=== PATIENT | female | born 1990 | race Caucasian/White ===

== ENCOUNTER 2022-08-11 01:03 | Emergency (ER) | payer OTHER ==
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
[2022-08-11 01:58] LABS: Urine Blood 1+ (Negative); Urine Glucose Negative (Negative); Urine Protein Negative (Negative); Urine Specific Gravity <=1.005 (1.005-1.030)
[2022-08-11 02:20] LABS: Albumin 4.1 g/dL (3.4-5.0); Bilirubin Total 0.3 mg/dL (0.2-1.0); Potassium 3.4 mmol/L (3.5-5.1)
[2022-08-11 02:21] LABS: Urine Bacteria <20 /HPF (<20); Urine Mucus Slight /HPF (None Seen); Urine RBC <5 /HPF (None Seen)
[2022-08-11 02:29] LABS: Absolute Lymphocytes (CBC) 1.3 K/uL (0.7-4.9); Hematocrit 36.2 % (36.0-45.0); Lymphocytes % 12.7 % (15.3-44.8); MCV 84.3 fL (80-100); MPV 7.8 fL (7.6-11.3); RBC Red Blood Cell Count 4.29 M/uL (3.86-4.86)
--- NOTE | 2022-08-11 03:49 | EDPHYS ---
Physician Documentation [facility] Name: Pamela Larsen Age: 32 yrs Sex: Female : 1990 Arrival Date: 08/11/2022 Time: 01:10 Bed 15 Private MD: ED Physician Tonny Johnson HPI: 08/11 01:40 This 32 yrs old Female presents to ER via Unassigned with complaints of Possible Kidney sp3 Stone. 01:40 2-year-old female with no significant past medical history presents with right lower sp3 quadrant abdominal pain radiating around to the right flank. Patient states that it has been occurring off and on for the past 2 days and today was associated with some urinary frequency and burning as well. After an intense pain., It is now subsided. She had an appointment with telemetry doc services who referred her to the emergency department for imaging. No prior history of kidney stone or pyelonephritis. Patient states that she is not . Review of systems negative for fever, headache, chest pain, shortness of breath, upper back pain, upper abdominal pain, rash, diarrhea, vomiting, any other symptoms at this time.. Historical: - Allergies: 01:15 No Known Allergies; jb4 - PMHx: 01:15 Depression; Anxiety; jb4 - PSHx: 01:15 ; jb4 - Immunization history:: Adult Immunizations up to date. - Social history:: Smoking status: Patient denies any tobacco usage or history of. ROS: 01:41 Constitutional: Negative for fever, chills, and weight loss, Eyes: Negative for injury, sp3 pain, redness, and discharge, ENT: Negative for injury, pain, and discharge, Neck: Negative for injury, pain, and swelling, Cardiovascular: Negative for chest pain, palpitations, and edema, Respiratory: Negative for shortness of breath, cough, wheezing, and pleuritic chest pain, MS/Extremity: Negative for injury and deformity, Skin: Negative for injury, rash, and discoloration, Neuro: Negative for headache, weakness, numbness, tingling, and seizure, Psych: Negative for depression, anxiety, suicide ideation, homicidal ideation, and hallucinations, Allergy/Immunology: Negative for hives, rash, and allergies, Endocrine: Negative for neck swelling, polydipsia, polyuria, polyphagia, and marked weight changes, Hematologic/Lymphatic: Negative for swollen nodes, abnormal bleeding, and unusual bruising. 01:41 All other systems are negative. Exam: 01:41 Constitutional: This is a well developed, well nourished patient who is awake, alert, sp3 and in no acute distress. Head/Face: Normocephalic, atraumatic. Eyes: Pupils equal round and reactive to light, extra-ocular motions intact. Lids and lashes normal. Conjunctiva and sclera are non-icteric and not injected. Cornea within normal limits. Periorbital areas with no swelling, redness, or edema. Neck: Trachea midline, no thyromegaly or masses palpated, and no cervical lymphadenopathy. Supple, full range of motion without nuchal rigidity, or vertebral point tenderness. No Meningismus. Chest/axilla: Normal chest wall appearance and motion. Nontender with no deformity. No lesions are appreciated. Cardiovascular: Regular rate and rhythm with a normal S1 and S2. No gallops, murmurs, or rubs. Normal PMI, no JVD. No pulse deficits. Respiratory: Lungs have equal breath sounds bilaterally, clear to auscultation and percussion. No rales, rhonchi or wheezes noted. No increased work of breathing, no retractions or nasal flaring. Abdomen/GI: Soft, non-tender, with normal bowel sounds. No distension or tympany. No guarding or rebound. No evidence of tenderness throughout. Back: No spinal tenderness. No costovertebral tenderness. Full range of motion. Skin: Warm, dry with normal turgor. Normal color with no rashes, no lesions, and no evidence of cellulitis. MS/ Extremity: Pulses equal, no cyanosis. Neurovascular intact. Full, normal range of motion. Neuro: Awake and alert, GCS 15, oriented to person, place, time, and situation. Cranial nerves II-XII grossly intact. Motor strength 5/5 in all extremities. Sensory grossly intact. Cerebellar exam normal. Normal gait. Psych: Awake, alert, with orientation to person, place and time. Behavior, mood, and affect are within normal limits. Vital Signs: 01:30 BP 124 / 81; Pulse 93; Resp 16; Pulse Ox 97% on R/A; Weight 92.53 kg (R); Height 5 ft. jb4 0 in. (152.40 cm) (R); Pain 11/23; 01:30 Body Mass Index 39.84 (92.53 kg, 152.40 cm) jb4 MDM: 01:38 Patient medically screened. sp3 01:41 Data reviewed: vital signs. ED course: Diagnosis includes kidney stone, pyelonephritis, sp3 UTI, gallbladder/biliary pathology, gastritis, intestinal pathology, functional abdominal pain. Also musculoskeletal origin is a possibility. Work-up will include laboratory values and CT scan of the abdomen/pelvis. Patient declined pain medication at this time citing that her pain had improved on its own.. 03:47 ED course: Workup negative -- pt likely had a kidney stone that has passed. Will d/c pt sp3 home with PCP follow-up. Pt has no current pain. . 08/11 01:34 Order name: CBC with Diff; Complete Time: 03:38 sp3 08/11 01:34 Order name: CMP; Complete Time: 02:23 sp3 08/11 01:34 Order name: Lipase; Complete Time: 02:23 sp3 08/11 01:34 Order name: Urine Microscopic Only; Complete Time: 02:23 sp3 08/11 01:58 Order name: Urine Dipstick-Ancillary; Complete Time: 02:23 EDMS 08/11 02:00 Order name: Test, Serum; Complete Time: 03:38 mw2 08/11 01:34 Order name: CT Abd/Pelvis - Without Contrast sp3 08/11 01:34 Order name: IV Saline Lock; Complete Time: 01:49 sp3 08/11 01:34 Order name: Labs collected and sent; Complete Time: 01:49 sp3 08/11 01:34 Order name: Urine Dipstick-Ancillary (obtain specimen); Complete Time: 01:57 sp3 08/11 01:34 Order name: Urine Test (obtain specimen); Complete Time: 01:57 sp3 Administered Medications: No medications were administered Disposition Summary: 08/11/22 03:48 Discharge Ordered Location: Home sp3 Condition: Stable sp3 Diagnosis - Flank Pain sp3 Discharge Instructions: - Discharge Summary Sheet sp3 - Flank Pain, Adult sp3 Forms: - Medication Reconciliation Form sp3 - Thank You Letter sp3 - Antibiotic Education sp3 - Prescription Opioid Use sp3 Signatures: Dispatcher [employer] EDDamián Mitchell, SAMUEL RN jb4 Tonny Johnson, MD sp3
--- NOTE | 2022-08-11 03:49 | ER ---
Nurse's Notes [facility] Name: Pamela Larsen Age: 32 yrs Sex: Female : 1990 Arrival Date: 08/11/2022 Time: 01:10 Bed 15 Private MD: Diagnosis: Flank Pain Presentation: 08/11 01:15 Chief complaint: Patient states: I started having pain in my right flank around 2130 to jb4 2300 last night. It is not as bad now. I think I Have a kidney stone. I took 400mg of ibuprofen to help with the pain at 2300. 01:15 Coronavirus screen: At this time, the client does not indicate any symptoms associated jb4 with coronavirus-19. Ebola Screen: No symptoms or risks identified at this time. 01:15 Method Of Arrival: Ambulatory jb4 01:30 Initial Sepsis Screen: Does the patient meet any 2 criteria? No. Patient's initial jb4 sepsis screen is negative. Does the patient have a suspected source of infection? No. Patient's initial sepsis screen is negative. Risk Assessment: Do you want to hurt yourself or someone else? Patient reports no desire to harm self or others. Onset of symptoms was August 10, 2022. Transition of care: patient was not received from another setting of care. 01:30 Acuity: MARLENA 3 jb4 Historical: - Allergies: 01:15 No Known Allergies; jb4 - PMHx: 01:15 Depression; Anxiety; jb4 - PSHx: 01:15 ; jb4 - Immunization history:: Adult Immunizations up to date. - Social history:: Smoking status: Patient denies any tobacco usage or history of. Screenin:15 Abuse screen: Denies threats or abuse. Nutritional screening: No deficits noted. jb4 Tuberculosis screening: No symptoms or risk factors identified. Fall Risk None identified. Assessment: 01:15 General: Appears in no apparent distress. comfortable, Behavior is calm, cooperative, jb4 appropriate for age. Pain: Complains of pain in right low back Pain radiates to right lower quadrant Pain currently is 1 out of 10 on a pain scale. Neuro: Level of Consciousness is awake, alert, obeys commands, Oriented to person, place, time, situation. Cardiovascular: Patient's skin is warm and dry. Respiratory: Airway is patent Respiratory effort is even, unlabored, Respiratory pattern is regular, symmetrical. GI: Abdomen is non-distended, obese, Patient currently denies abdominal pain. : No signs and/or symptoms were reported regarding the genitourinary system. EENT: No signs and/or symptoms were reported regarding the EENT system. Derm: Skin is intact, Skin is pink, warm \T\ dry. Musculoskeletal: Circulation, motion, and sensation intact. Range of motion: intact in all extremities. 02:30 Reassessment: Patient appears in no apparent distress at this time. Patient and/or jb4 family updated on plan of care and expected duration. Pain level reassessed. Patient is alert, oriented x 3, equal unlabored respirations, skin warm/dry/pink. 03:07 Reassessment: Patient appears in no apparent distress at this time. Patient and/or jb4 family updated on plan of care and expected duration. Pain level reassessed. Patient is alert, oriented x 3, equal unlabored respirations, skin warm/dry/pink. 04:07 Reassessment: Patient appears in no apparent distress at this time. Patient and/or jb4 family updated on plan of care and expected duration. Pain level reassessed. Patient is alert, oriented x 3, equal unlabored respirations, skin warm/dry/pink. Vital Signs: 01:30 BP 124 / 81; Pulse 93; Resp 16; Pulse Ox 97% on R/A; Weight 92.53 kg (R); Height 5 ft. jb4 0 in. (152.40 cm) (R); Pain 1/10; 01:30 Body Mass Index 39.84 (92.53 kg, 152.40 cm) jb4 ED Course: 01:10 Patient arrived in ED. ja2 01:15 Arm band placed on right wrist. jb4 01:15 Patient has correct armband on for positive identification. Bed in low position. Call jb4 light in reach. Side rails up X 1. Client placed on continuous cardiac and pulse oximetry monitoring. NIBP monitoring applied. 01:27 Tonny Johnson MD is Attending Physician. sp3 01:35 Damián Alves, SAMUEL is Primary Nurse. jb4 01:48 Triage completed. jb4 01:57 Inserted saline lock: 20 gauge in right antecubital area, using aseptic technique. jb5 Blood collected. 01:57 CBC with Diff Sent. jb5 01:57 CMP Sent. jb5 01:57 Lipase Sent. jb5 01:57 Urine Microscopic Only Sent. jb5 02:57 CT Abd/Pelvis - Without Contrast In Process Unspecified. EDMS 04:08 No provider procedures requiring assistance completed. IV discontinued, intact, jb4 bleeding controlled, No redness/swelling at site. Pressure dressing applied. Administered Medications: No medications were administered Outcome: 03:48 Discharge ordered by . sp3 04:08 Discharged to home ambulatory. jb4 04:08 Condition: stable 04:08 Discharge instructions given to patient, Instructed on discharge instructions, follow up and referral plans. Demonstrated understanding of instructions, follow-up care. 04:09 Patient left the ED. jb4 Signatures: Dispatcher [employer] EDMS Damián Alves RN RN jb4 Angelina Garrett jb5 Tonny Johnson MD MD sp3 Darcy Post2 Corrections: (The following items were deleted from the chart) 01:49 01:15 Chief complaint: Patient states: I started having pain in my right flank around jb4 2130 to 2300 last night. It is not as bad now. I think I Have a kidney stone. jb4
--- NOTE | 2022-08-11 17:33 | RAD REPORT ---
EXAM DESCRIPTION: Abdomen Pelvis Wo Contrast 08/11/2022 3:08 AM CDT CLINICAL HISTORY: 32 years, Female, Flank pain, kidney stone suspected COMPARISON: None. TECHNIQUE: Multiple transaxial tomograms of the abdomen and pelvis were performed from the lung base s to the symphysis pubis 5 mm slice thickness at 5 mm interval reconstruction, without administration of IV and oral contrast. Multiplanar reformats in the sagittal and coronal plane were generated and reviewed. This exam was performed according to our departmental dose-optimization protocol, which includes auto mated exposure control, adjustment of the mA and/or kV according to patient size and/or use of iterat gene reconstruction technique. FINDINGS: The lack of IV and oral contrast limits evaluation of solid organs, subtle lesions cannot be excluded. The lung bases demonstrate to be clear. Grossly the unopacified liver, gallbladder, pancreas, spleen and adrenal glands demonstrate to be wit hin normal limits, no significant focal lesions were identified. The kidneys demonstrate grossly unremarkable. There is no evidence for nephrolithiasis and/or hydro nephrosis. No focal masses were demonstrated. The ureters displays normal appearance with normal caliber, no hydroureter was seen. Grossly the unopacified stomach, small bowel and large bowel demonstrate to be within normal limits. There is no evidence for bowel dilatation/or free air. The appendix is unremarkable. The left site co carlos is decompressed with no gross abnormalities. The urinary bladder demonstrate to be within normal limits. The uterus demonstrate to be within amy l limits. No adnexal masses are identified. The aorta demonstrate to be within normal limits. There is no retroperitoneal lymphadenopathy. There is no evidence for ascites. The rest of the soft tiss ue demonstrate to be grossly unremarkable. IMPRESSION: No evidence for nephrolithiasis and/or hydronephrosis. Unremarkable CT scan of the abdomen and pelvis without contrast. Electronically signed by: Colten Foley MD 08/11/2022 3:09 AM CDT Due to temporary technical issues with the PACS/Fluency reporting system, reports are being signed by the in house radiologists without review as a courtesy to insure prompt reporting. The interpreting radiologist is fully responsible for the content of the report.
[2022-08-13 04:42] VITALS: BP 124/81; O2SAT 97
== END 2022-08-11 04:09 | disposition home or self-care (01) ==
LOC: ER 01:03
DX: R10.31 Right lower quadrant pain (principal)
CPT/HCPCS: 36415; 74176; 80053; 81003; 81015; 83690; 84703; 85025; 99283